=== PATIENT | female | born 1985 | race Caucasian/White ===

== ENCOUNTER 2017-09-18 09:46 | Emergency (ER) | payer OTHER ==
[~2017-09-18] VITALS: Ht 172.7 cm; Wt 68.0 kg
[~2017-09-18 09:46] MED LIST: DIAZ5TAB PO; HYDR-971 PO
[2017-09-18] MEDS ORDERED: ONDANSETRON PF 4 MG/2 ML VIAL. IV ONE (10:15)
[2017-09-18] MEDS ORDERED: IV NORMAL SALINE 1,000ML 1,000 ML IV SCH (10:20)
[2017-09-18] MEDS ORDERED: KETOROLAC 30 MG/ML VIAL. IV ONE (10:30)
[2017-09-18 10:31] LABS: BASO % 1 % (0-3); EOS # 0.1 x10^3/uL (0.0-0.7); EOS % 2 % (0-3); HEMATOCRIT 45.9 % (36.0-47.0); HEMOGLOBIN 16.2 g/dL (12.0-15.5); LYMPH # 0.5 x10^3/uL (1.0-4.8); LYMPH % 10 % (24-48); MEAN CORPUSCULAR HEMOGLOBIN 31 pg (25-35); MEAN CORPUSCULAR HGB CONC 35 g/dL (31-37); MEAN CORPUSCULAR VOLUME 89 fL (79-100); MONO # 0.4 x10^3/uL (0.0-1.1); MONO % 7 % (0-9); NEUT # 4.3 x10^3uL (1.8-7.7); NEUT % 80 % (31-73); PLATELET COUNT 281 x10^3/uL (140-400); RED BLOOD COUNT 5.18 x10^6/uL (3.50-5.40); RED CELL DISTRIBUTION WIDTH 13.1 % (11.5-14.5); WHITE BLOOD COUNT 5.3 x10^3/uL (4.0-11.0)
[2017-09-18 10:39] LABS: PREG TEST PT QUAL NEGATIVE (NEG)
[2017-09-18 10:43] LABS: ALBUMIN 4.1 g/dL (3.4-5.0); ALBUMIN/GLOBULIN RATIO 1.1 (1.0-1.7); CALCIUM 9.2 mg/dL (8.5-10.1); CREATININE 0.7 mg/dL (0.6-1.0); TOTAL BILIRUBIN 0.5 mg/dL (0.2-1.0); TOTAL PROTEIN 7.8 g/dL (6.4-8.2)
--- NOTE | 2017-09-18 11:06 | PHYS DOC ---
Past History Past Medical History: No Pertinent History Past Surgical History: No Surgical History Smoking: Non-smoker Alcohol Use: None Drug Use: None Adult General Chief Complaint Chief Complaint: ABDOMINAL PAIN HPI HPI Patient is a [31] year old [female] who presents with [complaining of abdominal pain and nausea vomiting diarrhea.] Patient complaining of constant epigastric sharp pain without radiation for the last 4 days that getting worse with eating. Patient states she had about 10 episodes of nonbloody vomiting and diarrhea for first 2 days but for last 2 days did not have any episodes of vomiting and had small amount of loose stool with feeling of unable to have a good BM. Patient complaining of passing large amount of gas and increasing sharp epigastric pain and anorexia without fever and chills, urinary symptoms, sick contacts,. Review of Systems Review of Systems Constitutional: Denies fever or chills [] Eyes: Denies change in visual acuity, redness, or eye pain [] HENT: Denies nasal congestion or sore throat [] Respiratory: Denies cough or shortness of breath [] Cardiovascular: No additional information not addressed in HPI [] GI: Report abdominal pain, nausea, vomiting, diarrhea [] : Denies dysuria or hematuria [] Musculoskeletal: Denies back pain or joint pain [] Integument: Denies rash or skin lesions [] Neurologic: Denies headache, focal weakness or sensory changes [] Endocrine: Denies polyuria or polydipsia [] All other systems were reviewed and found to be within normal limits, except as documented in this note. Current Medications Current Medications Current Medications Medications (Trade) Dose Ordered Sig/[facility] Start Time Stop Time Status Last Admin Dose Admin Fentanyl Citrate (Fentanyl 2ml Vial) 50 mcg 1X ONCE 09/18/17 11:00 09/18/17 11:01 DC 09/18/17 10:56 50 MCG Ketorolac Tromethamine (Toradol) 30 mg 1X ONCE 09/18/17 10:30 09/18/17 10:31 DC 09/18/17 10:29 30 MG Ondansetron HCl (Zofran) 4 mg 1X ONCE 09/18/17 10:15 09/18/17 10:16 DC 09/18/17 10:18 4 MG Sodium Chloride 1,000 ml @ 1,000 mls/hr Q1H 09/18/17 10:20 09/18/17 11:19 09/18/17 10:19 1,000 MLS/HR Allergies Allergies Allergies Coded Allergies Type Severity Reaction Last Updated Verified No Known Drug Allergies 10/23/16 No Physical Exam Physical Exam Constitutional: Well developed, well nourished, moderate distress, non-toxic appearance, anxious and tearful. [] HENT: Normocephalic, atraumatic, bilateral external ears normal, oropharynx moist, no oral exudates, nose normal. [] Eyes: PERRLA, EOMI, conjunctiva normal, no discharge. [] Neck: Normal range of motion, no tenderness, supple, no stridor. [] Cardiovascular:Heart rate regular rhythm, no murmur [] Lungs & Thorax: Bilateral breath sounds clear to auscultation [] Abdomen: Bowel sounds normal, soft, no tenderness, no masses, no pulsatile masses. [] Skin: Warm, dry, no erythema, no rash. [] Back: No tenderness, no CVA tenderness. [] Extremities: No tenderness, no cyanosis, no clubbing, ROM intact, no edema. [] Neurologic: Alert and oriented X 3, normal motor function, normal sensory function, no focal deficits noted. [] Psychologic Anxious, judgement normal. Current Patient Data Vital Signs Vital Signs Date Time Temp Pulse Resp B/P (MAP) Pulse Ox O2 Delivery O2 Flow Rate FiO2 09/18/17 10:56 18 100 09/18/17 09:56 97.9 102 Room Air Lab Results Laboratory Tests Test 09/18/17 10:20 White Blood Count 5.3 x10^3/uL (4.0-11.0) Red Blood Count 5.18 x10^6/uL (3.50-5.40) Hemoglobin 16.2 g/dL (12.0-15.5) H Hematocrit 45.9 % (36.0-47.0) Mean Corpuscular Volume 89 fL (79-100) Mean Corpuscular Hemoglobin 31 pg (25-35) Mean Corpuscular Hemoglobin Concent 35 g/dL (31-37) Red Cell Distribution Width 13.1 % (11.5-14.5) Platelet Count 281 x10^3/uL (140-400) Neutrophils (%) (Auto) 80 % (31-73) H Lymphocytes (%) (Auto) 10 % (24-48) L Monocytes (%) (Auto) 7 % (0-9) Eosinophils (%) (Auto) 2 % (0-3) Basophils (%) (Auto) 1 % (0-3) Neutrophils # (Auto) 4.3 x10^3uL (1.8-7.7) Lymphocytes # (Auto) 0.5 x10^3/uL (1.0-4.8) L Monocytes # (Auto) 0.4 x10^3/uL (0.0-1.1) Eosinophils # (Auto) 0.1 x10^3/uL (0.0-0.7) Basophils # (Auto) 0.0 x10^3/uL (0.0-0.2) Sodium Level 138 mmol/L (136-145) Potassium Level 4.0 mmol/L (3.5-5.1) Chloride Level 102 mmol/L (98-107) Carbon Dioxide Level 27 mmol/L (21-32) Anion Gap 9 (6-14) Blood Urea Nitrogen 7 mg/dL (7-20) Creatinine 0.7 mg/dL (0.6-1.0) Estimated GFR (Cockcroft-Gault) 97.0 BUN/Creatinine Ratio 10 (6-20) Glucose Level 105 mg/dL (70-99) H Calcium Level 9.2 mg/dL (8.5-10.1) Total Bilirubin 0.5 mg/dL (0.2-1.0) Aspartate Amino Transferase (AST) 12 U/L (15-37) L Alanine Aminotransferase (ALT) 28 U/L (14-59) Alkaline Phosphatase 58 U/L (46-116) Total Protein 7.8 g/dL (6.4-8.2) Albumin 4.1 g/dL (3.4-5.0) Albumin/Globulin Ratio 1.1 (1.0-1.7) Lipase 102 U/L (73-393) Serum Test, Qualitative Negative (NEG) EKG EKG [] Radiology/Procedures Radiology/Procedures [] Course & Med Decision Making Course & Med Decision Making Pertinent Labs and Imaging studies reviewed. (See chart for details) [Evaluation of patient in the ER showed 31-year-old female patient with complaining of epigastric pain and nausea and vomiting. Patient was tearful and in moderate distress of pain. Patient had unremarkable abdominal exam and labs and CT abdomen/pelvis. Patient treated with IV fluid, Zofran, Toradol, fentanyl and morphine and felt better and tolerated oral intake. Plan discharge patient home with diagnosis of acute viral gastroenteritis and instructions to follow up with her primary care physician and increase fluid intake. Dragon Disclaimer Dragon Disclaimer This electronic medical record was generated, in whole or in part, using a voice recognition dictation system. Departure Departure: Impression: Primary Impression: Acute gastroenteritis Additional Impression: Epigastric pain Disposition: HOME, SELF-CARE (discharged at 1246) Condition: IMPROVED Referrals: PCP,UNKNOWN (PCP) Additional Instructions: Follow-up with your primary care physician in 3-5days Return to ER if not getting better Take liquid diet for 12 hours Increase fluid intake Scripts Hydrocodone Bit/Acetaminophen (NORCO 5-325 TABLET) 1 Each Tablet 1 TAB PO PRN Q6HRS Y for PAIN for 3 Days, #12 TAB 0 Refills Prov: ENEDELIA MCKOEN MD 09/18/17 Ondansetron (ZOFRAN ODT) 4 Mg Tab.rapdis 1 TAB SL Q8HRS, #15 TAB Prov: ENEDELIA MCKEON MD 09/18/17 Problem Qualifiers ENEDELIA MCKEON MD Sep 18, 2017 11:06
[2017-09-18] MEDS ORDERED: IOHEXOL 300 MG/ML 75 ML VIAL. IV ONE (11:15)
[2017-09-18 12:15] VITALS: BP 133/65
--- NOTE | 2017-09-18 12:19 | RAD ---
EXAM: CT abdomen and pelvis with contrast. HISTORY: 31-year-old female with abdominal pain for 4 days. Epigastric pain with vomiting and diarrhea. TECHNIQUE: Computed tomographic images of the abdomen and pelvis are obtained following the intravenous demonstration of 75 cc of Omni 300. Multiplanar reformatting was performed. One or more of the following individualized dose reduction techniques were utilized for this examination: 1. Automated exposure control 2. Adjustment of the mA and/or kV according to patient size 3. Use of iterative reconstruction technique COMPARISON: None. FINDINGS: The liver, gallbladder, spleen, pancreas, adrenal glands and kidneys demonstrate no focal abnormality. No dilated small bowel loops are seen to suggest obstruction. The appendix is well-visualized in the right lower quadrant posterior to the ascending colon, measuring up to 6 mm in diameter with air in its proximal lumen. No adjacent soft tissue stranding or adenopathy is seen to suggest acute inflammation. There is intraluminal fluid present within portions of the proximal and distal colon. No focal bowel wall thickening is seen. The urinary bladder is unremarkable. Uterus and bilateral adnexa demonstrate no focal abnormality in this premenopausal patient. No free fluid, free air or significant lymphadenopathy is seen within the abdomen or pelvis. Aorta is normal in caliber. The visualized lung bases are clear. There is partial visualization of bilateral breast implants. Overlying soft tissues and visualized osseous structures demonstrate no acute finding. IMPRESSION: No acute intra-abdominal or pelvic process seen. Fluid is present within portions of the colon, consistent with provided history of diarrhea. No bowel wall thickening or evidence of obstruction present.
[2017-09-18 12:26] LABS: BACTERIA,URINE 0 /HPF (0-FEW); BILIRUBIN,URINE NEG (NEG); CLARITY,URINE CLEAR; COLOR,URINE YELLOW; GLUCOSE,URINE NEG (NEG); NITRITE,URINE NEG (NEG); RBC,URINE OCC /HPF (0-2); SQUAMOUS EPITHELIAL CELL,UR FEW /LPF; UROBILINOGEN,URINE 0.2 mg/dL (0.2 mg/dL)
[2017-09-18] MEDS ORDERED: MORPHINE SULFATE 4 MG/ML DISP.SYRIN. IV ONE (12:30)
[2017-09-18] MEDS ORDERED: ONDA4TAB10 SL (12:50)
[2017-09-18] MEDS ORDERED: HYDR-971 PO (12:50)
== END 2017-09-18 13:03 | disposition home or self-care (01) ==
LOC: ER 09:46
DX: K52.89 Other specified noninfective gastroenteritis and colitis (principal)
CPT/HCPCS: 36415; 74177; 80053; 81001; 83690; 84703; 85025; 96361; 96374; 96375; 99285; J1885; J2270; J2405; J3010; Q9967; J7030

== ENCOUNTER 2018-12-21 12:59 | Emergency (ER) | payer OTHER ==
[~2018-12-21] VITALS: Ht 172.7 cm; Wt 79.4 kg
[~2018-12-21 12:59] MED LIST changes: +HYDR-3165 PO; -HYDR-971 PO; +ONDA4TAB10 SL
[2018-12-21 13:00] VITALS: BP 146/87
--- NOTE | 2018-12-21 13:18 | PHYS DOC ---
Past History Past Medical History: No Pertinent History Past Surgical History: No Surgical History Smoking: Non-smoker Alcohol Use: None Drug Use: None Adult General Chief Complaint Chief Complaint: LACERATION/AVULSION [facility] HPI Patient is a 33 year old right-handed female who presents with complaining of laceration of left index finger. Patient states she was using a cutting board while she was at work and cut her left index finger on volar side of middle phalanx without focal neuro deficit. Patient also had superficial laceration of nail of left thumb and tip of fifth finger. She rated her pain 9 out of 10. Patient is up-to-date with her tetanus immunization. Review of Systems Review of Systems Constitutional: Denies fever or chills [] Eyes: Denies change in visual acuity, redness, or eye pain [] HENT: Denies nasal congestion or sore throat [] Respiratory: Denies cough or shortness of breath [] Cardiovascular: No additional information not addressed in HPI [] GI: Denies abdominal pain, nausea, vomiting, bloody stools or diarrhea [] : Denies dysuria or hematuria [] Musculoskeletal: Denies back pain, reports joint pain [] Integument: Denies rash or skin lesions [] Neurologic: Denies headache, focal weakness or sensory changes [] Endocrine: Denies polyuria or polydipsia [] All other systems were reviewed and found to be within normal limits, except as documented in this note. Allergies Allergies Allergies Coded Allergies Type Severity Reaction Last Updated Verified No Known Drug Allergies 12/21/18 No Physical Exam Physical Exam Constitutional: Well developed, well nourished,mild distress, non-toxic appearance. [] HENT: Normocephalic, atraumatic. Eyes: PERRLA, EOMI, conjunctiva normal, no discharge. [] Neck: Normal range of motion, no tenderness, supple, no stridor. [] Cardiovascular:Heart rate regular rhythm, no murmur [] Lungs & Thorax: Bilateral breath sounds clear to auscultation [] Extremities: Left index finger with 1.5 cm laceration in volar side of middle phalanx close to PIP joint with exposed fat tissue, no sign of tendon injury. Superficial abrasion of medial left thumb and keep up left fifth finger. Neurologic: Alert and oriented X 3, normal motor function, normal sensory function, no focal deficits noted. [] Psychologic: Affect anxious. EKG EKG [] Radiology/Procedures Radiology/Procedures [] Course & Med Decision Making Course & Med Decision Making discharge: I've spoken with the patient and/or caregivers. I've explained the patient's condition, diagnosis and treatment plan based on information available to me at this time. I've answered the patient's and/or caregivers questions and addressed any concerns. The patient and/or caregivers have a good understanding the patient's diagnosis, condition and treatment plan as can be expected at this point. Vital signs have been stabilized. The patient's condition is stable for discharge from the emergency department. The patient will pursue further outpatient evaluation with her primary care provider or other designated consulting physician as outlined in the discharge instructions. Patient and/or caregivers are agreeable to this plan of care and follow-up instructions have been explained in detail. The patient and/or caregivers have received these instructions in written format and expressed understanding of these discharge instructions. The patient and her caregivers are aware that if any significant change in condition or worsening of symptoms should prompt him to immediately return to this of the closest emergency department. If an emergent department is not readily available I would encourage him to call 911. Vinny Disclaimer Dragon Disclaimer This electronic medical record was generated, in whole or in part, using a voice recognition dictation system. Departure Departure: Impression: Primary Impression: Laceration of index finger with foreign body Disposition: HOME, SELF-CARE (at 1411) Condition: IMPROVED Referrals: PCPMITCH (PCP) Patient Instructions: Sutured Wound Care Additional Instructions: Keep wound clean and dry Follow-up with your primary care physician or emergency room in 10 days for suture removal Scripts Hydrocodone Bit/Acetaminophen (NORCO 5-325 TABLET) 1 Each Tablet 1 TAB PO PRN Q6HRS PRN for PAIN, #8 TAB 0 Refills Prov: ENEDELIA MCKEON MD 12/21/18 Laceration Repair Lac Repair Indication: Left index finger laceration Procedure: The patient was placed in the appropriate position and left index finger digital block and local anesthesia around the laceration of medial phalanx was given. Then the wound was washed extensively for foreign body that showed in x-ray. The area was then prepped.. The laceration was closed in one layer with 5 sutures of 5-0 Ethilon]. [ADDITIONAL LACS] The wound area was then dressed with nonadhesive dressing. Total repaired wound length: 1.5 cm Other Items: [OTHER ITEMS] The patient tolerated the procedure. Complications: None Problem Qualifiers Primary Impression: Laceration of index finger with foreign body Encounter type: initial encounter Damage to nail status: unspecified Laterality: left Qualified Codes: S61.221A - Laceration with foreign body of left index finger without damage to nail, initial encounter ENEDELIA MCKEON MD Dec 21, 2018 13:17
--- NOTE | 2018-12-21 13:35 | RAD ---
EXAM: Left index finger, 3 views. HISTORY: Laceration. COMPARISON: None. FINDINGS: 3 views of the left index finger are obtained. There is no fracture, dislocation or subluxation. There is a laceration along the distal radial aspect of the index finger. There are few small radiodensities underlying this location, the largest of which measures 3 mm. IMPRESSION: 1. Left index finger laceration with associated small radiodensities likely due to tiny foreign bodies. 2. No acute osseous finding. Electronically signed by: Delmi Lopez MD (12/21/2018 1:32 PM) [place] [id number]
[2018-12-21] MEDS ORDERED: HYDR-3165 PO (14:13)
[2018-12-21] MEDS ORDERED: LIDOCAINE 1% Multi-Dose 20 ML VIAL. IJ ONE (14:20)
[2019-03-01] MEDS ORDERED: ERGO500027 PO (10:40)
[2019-03-01] MEDS ORDERED: LAMO100T5 PO (10:40)
[2019-03-01] MEDS ORDERED: TRAZ-120 PO (10:40)
[2019-03-01] MEDS ORDERED: PREN1TAB58 PO (10:40)
[2019-03-01] MEDS ORDERED: CLON1TAB PO (10:40)
== END 2018-12-21 14:21 | disposition home or self-care (01) ==
LOC: ER 12:59
DX: S61.221A Laceration with foreign body of left index finger without damage to nail, initial encounter (principal); S60.312A Abrasion of left thumb, initial encounter; W27.8XXA Contact with other nonpowered hand tool, initial encounter; Y93.89 Activity, other specified; Y92.89 Other specified places as the place of occurrence of the external cause; Y99.0 Civilian activity done for income or pay
CPT/HCPCS: 12001; 12041; 73140; 99283; 99284

== ENCOUNTER → 2019-03-07 | Day surgery (SDC) | payer OTHER ==
[~2019-03-07] MED LIST changes: +ALBUTEROL SULFATE 2.5 MG/3 ML NEBU. NEB PRN; +ATROPINE 0.5 MG/5 ML DISP.SYRIN. IV PRN; +CLON1TAB PO; +DICL50TA4 PO; +ERGO500027 PO; +IV RINGERS SOLUTION,LACTATED 1,000 ML IV SCH; +LAMO100T5 PO; +LIDOCAINE 2% PF Vial for OR 5 ML VIAL. ONE; +NALOXONE 0.4 MG/ML VIAL. IV PRN; +ONDANSETRON PF 4 MG/2 ML VIAL. IV PRN; +PREN1TAB58 PO; +PROPOFOL 40 ML IV ONE; +TRAZ-120 PO; +diphenhydrAMINE 50 MG/ML VIAL IV PRN
[2019-03-07 11:30] LABS: U PREG PATIENT NEGATIVE (NEG)
--- NOTE | 2019-03-07 11:46 | PDOC1 ---
History of Present Illness Reason for Visit: History of colon polyps History of Present Illness 33 yo female who has had several colonoscopies since age 15 yo for colon polyps. Last colonoscopy 5 years ago. Positive family history of colon cancer. She does complain of abdominal bloating and crampy pain at times Chief Complaint: as above Allergies: Coded Allergies: No Known Drug Allergies (Unverified , 12/21/18) Past Medical History Cardiac: No pertinent hx Pulmonary: No pertinent hx GRAIN MERCHANDISER: Seizure GI: Other (colon polyps) Heme/Onc: No pertinent hx Hepatobiliary: No pertinent hx Psych: No pertinent hx Musculoskeletal: No pertinent hx Rheumatologic: No pertinent hx Infectious disease: No pertinent hx ENT: No pertinent hx Renal/: No pertinent hx Endocrine: No pertinent hx Dermatology: No pertinent hx Past Surgical History: Breast Biopsy, Other (colonoscopy) Family History: Cancer (colon) Past Social History Smoke: No Alcohol: none Drugs: None Lives: with Family Review of Systems Review Of Systems Fourteen system , review of systems has been reviewed. See HPI for pertinent positives and negative responses, other mariee all other systems are negative, non pertinent or non contributory Gastrointestinal: YES: Abdominal Pain Medications Current Medications Lactated Ringer's 1,000 ml @ 125 mls/hr Q8H IV ; Start 03/07/19 at 10:04; Stop 03/07/19 at 22:03 Ondansetron HCl (Zofran) 4 mg PRN Q6HRS PRN IV Nausea, 1st Choice; Start 03/07/19 at 10:15; Stop 03/08/19 at 10:14 Diphenhydramine HCl (Benadryl) 12.5 mg PRN Q2HR PRN IV ITCHING; Start 03/07/19 at 10:15; Stop 03/08/19 at 10:14 Albuterol Sulfate (Ventolin) 2.5 mg PRN 1X PRN NEB Shortness of Breath, Wheezing; Start 03/07/19 at 10:15; Stop 03/08/19 at 10:14 Atropine Sulfate (ATROPINE 0.5mg SYRINGE) 0.5 mg PRN Q2MIN PRN IV BRADYCARDIA; Start 03/07/19 at 10:15; Stop 03/08/19 at 10:14 Naloxone HCl (Narcan) 0.04 mg PRN Q2MIN PRN IV Respiratory Depression; Start 03/07/19 at 10:15; Stop 03/08/19 at 10:14 Propofol 40 ml @ As Directed STK-MED ONCE IV ; Start 03/07/19 at 10:09; Stop 03/07/19 at 10:10; Status DC Lidocaine HCl (Lidocaine Pf 2% Vial) 5 ml STK-MED ONCE .ROUTE ; Start 03/07/19 at 10:09; Stop 03/07/19 at 10:10; Status DC Active Scripts Active Reported Vitamin D2 (Ergocalciferol (Vitamin D2)) 50,000 Unit Capsule 1 Cap PO WEEKLY Vitamins ( Vits W-Ca,Fe,Fa(<1MG)) 1 Each Tablet 1 Tab PO DAILY Lamictal (Lamotrigine) 100 Mg Tablet 3 Tab PO DAILY Trazodone Hcl 50 Mg Tablet 4 Tab PO QHS Klonopin (Clonazepam) 1 Mg Tablet 1 Tab PO BID Exam General Appearance: Alert, Oriented X3, Cooperative HEENT: Atraumatic, PERRLA, EOMI Respiratory: Clear to auscultation, Normal air movement Heart: Regular rate, No murmurs Abdominal: Normal bowel sounds, Soft, No tenderness Extremities: No edema Skin: No significant lesion Neuro: Normal speech Assessment/Plan Assessment/Plan History of colon polyps, plan colonoscopy COURSE Allergies Coded Allergies Type Severity Reaction Last Updated Verified No Known Drug Allergies 12/21/18 No Laboratory Tests Test 03/07/19 11:15 Urine Test Negative (NEG) Current Medications Medications (Trade) Dose Ordered Sig/Kristen Route PRN Reason Start Time Stop Time Status Last Admin Dose Admin Lactated Ringer's 1,000 ml @ 125 mls/hr Q8H IV 03/07/19 10:04 03/07/19 22:03 Ondansetron HCl (Zofran) 4 mg PRN Q6HRS PRN IV Nausea, 1st Choice 03/07/19 10:15 03/08/19 10:14 Diphenhydramine HCl (Benadryl) 12.5 mg PRN Q2HR PRN IV ITCHING 03/07/19 10:15 03/08/19 10:14 Albuterol Sulfate (Ventolin) 2.5 mg PRN 1X PRN NEB Shortness of Breath, Wheezing 03/07/19 10:15 03/08/19 10:14 Atropine Sulfate (ATROPINE 0.5mg SYRINGE) 0.5 mg PRN Q2MIN PRN IV BRADYCARDIA 03/07/19 10:15 03/08/19 10:14 Naloxone HCl (Narcan) 0.04 mg PRN Q2MIN PRN IV Respiratory Depression 03/07/19 10:15 03/08/19 10:14 Propofol 40 ml @ As Directed STK-MED ONCE IV 03/07/19 10:09 03/07/19 10:10 DC Lidocaine HCl (Lidocaine Pf 2% Vial) 5 ml STK-MED ONCE .ROUTE 03/07/19 10:09 03/07/19 10:10 DC Orders Procedure Category Date Status Time Vital Signs, Per [facility] 03/07/19 In Process Protocol 10:04 Pulse Ox - ZORAN 03/07/19 In Process Intermittent 10:04 Iv Ringers PHA 03/07/19 In Process Solution,Lactated (Iv 10:04 Vital Signs, Per [facility] 03/07/19 In Process Protocol 10:04 Pulse Oximetry: [facility] 03/07/19 In Process Standing Order 10:04 Field Machinist [facility] 03/07/19 In Process 10:04 Elevate Head Of Bed [facility] 03/07/19 In Process 10:04 Discharge From [facility] 03/07/19 In Process Hospital 10:04 Ondansetron Pf PHA 03/07/19 In Process (Zofran) 10:15 Diphenhydramine PHA 03/07/19 In Process (Benadryl) 10:15 Albuterol Sulfate PHA 03/07/19 In Process (Ventolin) 10:15 Atropine Sulfate PHA 03/07/19 In Process (Atropine 0.5mg 10:15 Naloxone (Narcan) PHA 03/07/19 In Process 10:15 Airway Inhalation RT 03/07/19 Logged Treatment 10:04 Test,Urine LAB 03/07/19 Complete 10:04 Propofol (Diprivan) PHA 03/07/19 Complete 10:09 Lidocaine 2% Pf Vial PHA 03/07/19 Complete For Or (Lidocaine P 10:09 VAZQUEZ ADAMS MD March 07, 2019 11:45
[2019-03-07 12:42] VITALS: BP 128/68
--- NOTE | 2019-03-09 16:06 | PATHOLOGY ---
[facility] Accession Number: [id number] . 01 Material submitted: . PART A: cecum - CECUM POLYP BIOPSY PART B: colon - BIOPSY AT 35CM/IRRITATED MUCOSAL PART C: rectum - RECTUM BIOPSY . 01 Clinical history: . Screening colon/Hx polyps . 02 Diagnosis: A. Colon biopsies, cecal polyp: - Tubular adenoma. . B. Colon biopsy, "irritated mucosa at 35 cm": - No significant pathologic abnormalities. . C. Colorectal biopsies, rectum: - Hyperplastic polyp and few mucosal-associated lymphoid aggregates. (JPM:[facility] 03/09/2019) [facility]/03/09/2019 . 02 Comment: Sections of the cecal biopsy reveal a tubular adenoma showing no high-grade dysplasia or evidence of malignancy. . Sections of the colon biopsy at 35 cm reveal a segment of colonic mucosa showing focal mild congestion and few microhemorrhages within the lamina propria. There is no evidence of an acute colitis, ischemic colitis, chronic destructive colitis, lymphocytic colitis, or collagenous colitis. . Sections of the rectal biopsy reveal a hyperplastic polyp and a few mucosal-associated lymphoid aggregates. There are no adenomatous changes or evidence of malignancy. (JPM:[facility] 03/09/2019) . 02 Electronically signed: . Carlos Hill MD, Pathologist NPI- [id number] . 01 Gross description: . A. Received in formalin labeled "Margoth Vazquez, cecum polyp BX's," and additionally labeled on the requisition as "BX," are 3 segments of dale soft tissue measuring 1.0 x 0.7 x 0.4 cm in aggregate dimensions and ranging from 0.4 to 0.5 cm in maximum dimension. The specimen is submitted entirely in cassette A1. . B. Received in formalin labeled "Margoth Vazquez, BX at 35 cm/irritated mucosa," is a single segment of dale soft tissue measuring 0.6 cm in maximum dimension. The specimen is entirely submitted in cassette B1. . C. Received in formalin labeled "Margoth Vazquez, rectum BX," are 2 segments of dale soft tissue measuring 0.9 x 0.3 x 0.2 cm in aggregate dimensions and ranging from 0.4 to 0.5 cm in maximum dimension. The specimen is submitted entirely in cassette C1. ([facility]; 03/08/2019) TOB/TOB . 02 Pathologist provided ICD-10: D12.0, K62.1 . 02 CPT . 453467, 148684, 139718 Specimen Comment: A courtesy copy of this report has been sent to Specimen Comment: [phone]. Specimen Comment: Report sent to Performed at: 01 [facility] [address], [place] [id number] MD Siddharth Brady MD Phone: [phone] Performed at: 02 [facility] [address], [place] [id number] MD Carlos Hill MD Phone: [phone]
== END | disposition home or self-care (01) ==
LOC: SURG 10:54
PROVIDERS: ATTEND Surgery
DX: D12.0 Benign neoplasm of cecum (principal); K62.1 Rectal polyp; K64.0 First degree hemorrhoids; R56.9 Unspecified convulsions; Z86.010 Personal history of colon polyps; Z80.0 Family history of malignant neoplasm of digestive organs; Z79.899 Other long term (current) drug therapy
CPT/HCPCS: 45380; 81025; 88305; J2704; J7120; J2001

== ENCOUNTER 2019-03-23 00:01 | Emergency (ER) | payer OTHER ==
[~2019-03-23] VITALS: Ht 172.7 cm; Wt 86.2 kg
[2019-03-23 00:01] VITALS: BP 121/83
[~2019-03-23 00:01] MED LIST changes: -ALBUTEROL SULFATE 2.5 MG/3 ML NEBU. NEB PRN; -ATROPINE 0.5 MG/5 ML DISP.SYRIN. IV PRN; -DICL50TA4 PO; -IV RINGERS SOLUTION,LACTATED 1,000 ML IV SCH; -LIDOCAINE 2% PF Vial for OR 5 ML VIAL. ONE; -NALOXONE 0.4 MG/ML VIAL. IV PRN; -ONDANSETRON PF 4 MG/2 ML VIAL. IV PRN; -PROPOFOL 40 ML IV ONE; -diphenhydrAMINE 50 MG/ML VIAL IV PRN
--- NOTE | 2019-03-23 00:24 | PHYS DOC ---
Past History Past Medical History: No Pertinent History Past Surgical History: No Surgical History Smoking: Non-smoker Alcohol Use: Rarely Drug Use: None Adult General Chief Complaint Chief Complaint: FOOT INJURY PAIN [facility] HPI Patient is a 33-year-old female who presents with complaint of injury to her right foot earlier today. Patient states that she was working with a sump pump to pump water out of her pool when a piece of the pump fell off and landed on her foot. Patient states that since that time she has had continued pain in the foot that now radiates out to her toes. She denies any other injuries. She rates pain as moderate.[] Review of Systems Review of Systems Constitutional: Denies fever or chills [] Respiratory: Denies cough or shortness of breath [] Cardiovascular: No additional information not addressed in HPI [] Musculoskeletal: Positive right foot pain [] Integument: Denies rash or skin lesions [] Allergies Allergies Allergies Coded Allergies Type Severity Reaction Last Updated Verified No Known Drug Allergies 03/07/19 No Physical Exam Physical Exam Constitutional: Well developed, well nourished, no acute distress, non-toxic appearance. [] Cardiovascular:Heart rate regular rhythm, no murmur [] Lungs & Thorax: Bilateral breath sounds clear to auscultation [] Abdomen: Bowel sounds normal, soft, no tenderness, no masses, no pulsatile masses. [] Extremities: Examination of right foot demonstrates small amount of soft tissue swelling dorsally with ecchymosis in the mid dorsal foot. [] EKG EKG [] Radiology/Procedures Radiology/Procedures [] Impressions: X-ray of right foot demonstrates no acute bony abnormalities. Course & Med Decision Making Course & Med Decision Making Pertinent Labs and Imaging studies reviewed. (See chart for details) [] Dragon Disclaimer Dragon Disclaimer This electronic medical record was generated, in whole or in part, using a voice recognition dictation system. Departure Departure: Impression: Primary Impression: Contusion of right foot Disposition: 01 HOME, SELF-CARE Condition: STABLE Referrals: PCP,UNKNOWN (PCP) Patient Instructions: Foot Contusion Scripts Diclofenac Sodium (DICLOFENAC SODIUM) 50 Mg Tablet. 1 TAB PO BID PRN for PAIN, #20 TAB Prov: DAWNA BESS Jr. DO 03/23/19 Problem Qualifiers Primary Impression: Contusion of right foot Encounter type: initial encounter Qualified Codes: S90.31XA - Contusion of right foot, initial encounter DAWNA BESS Jr. DO Mar 23, 2019 00:24
[2019-03-23] MEDS ORDERED: DICL50TA4 PO (01:08)
--- NOTE | 2019-03-23 08:20 | RAD ---
EXAM: RIGHT FOOT 3 VIEWS. HISTORY: Right foot pain after dropping heavy object. COMPARISON: None. FINDINGS: Three views of the right foot are obtained. No fractures are identified. Alignment is normal. Joint spaces are maintained. IMPRESSION: 1. No fracture. Electronically signed by: Caty Murphy MD (03/23/2019 8:18 AM) [facility]
== END 2019-03-23 01:30 | disposition home or self-care (01) ==
LOC: ER 00:01
DX: S90.31XA Contusion of right foot, initial encounter (principal); W20.8XXA Other cause of strike by thrown, projected or falling object, initial encounter; Y93.89 Activity, other specified; Y92.89 Other specified places as the place of occurrence of the external cause; Y99.8 Other external cause status
CPT/HCPCS: 73630; 99284

== ENCOUNTER 2019-09-30 11:24 | Emergency (ER) | payer OTHER ==
[~2019-09-30] VITALS: Ht 172.7 cm; Wt 86.2 kg
[~2019-09-30 11:24] MED LIST changes: +DICL50TA4 PO
[2019-09-30 11:51] VITALS: BP 161/120
[2019-09-30] MEDS ORDERED: clonazePAM 1 MG TABLET PO STA (12:16)
--- NOTE | 2019-09-30 12:25 | PHYS DOC ---
Past History Past Medical History: Anxiety, Other Additional Past Medical Histor: "MTHFR" Past Surgical History: No Surgical History Smoking: Non-smoker Alcohol Use: None Drug Use: None Adult General Chief Complaint Chief Complaint: RAPID HEART RATE HPI HPI Patient is a 33-year-old female presents with dizziness and lightheadedness, some worse with standing up. She notes that her heart rate has been fast. She also had some nausea and vomiting this morning. She attributes this to a change in her medicines. She is on clonazepam normally for anxiety. Her new primary care physician switched her to Ativan 2 days ago. No improvement in symptoms with the Ativan. Symptoms are moderate in intensity[] Review of Systems Review of Systems Constitutional: Denies fever or chills [] Eyes: Denies change in visual acuity, redness, or eye pain [] HENT: Denies nasal congestion or sore throat [] Respiratory: Denies cough or shortness of breath [] Cardiovascular: No chest pain[] GI: Denies abdominal pain, nausea, vomiting, bloody stools or diarrhea [] : Denies dysuria or hematuria [] Musculoskeletal: Denies back pain or joint pain [] Integument: Denies rash or skin lesions [] Neurologic: Denies headache, focal weakness or sensory changes [] Endocrine: Denies polyuria or polydipsia [] All other systems were reviewed and found to be within normal limits, except as documented in this note. Allergies Allergies Allergies Coded Allergies Type Severity Reaction Last Updated Verified No Known Drug Allergies 03/07/19 No Physical Exam Physical Exam Constitutional: Well developed, well nourished, no acute distress, non-toxic appearance. [] HENT: Normocephalic, atraumatic, bilateral external ears normal, oropharynx moist, no oral exudates, nose normal. [] Eyes: PERRLA, EOMI, conjunctiva normal, no discharge. [] Neck: Normal range of motion, no tenderness, supple, no stridor. [] Cardiovascular:Heart rate regular rhythm, no murmur, heart rate was in the 90s at time of exam [] Lungs & Thorax: Bilateral breath sounds clear to auscultation [] Abdomen: Bowel sounds normal, soft, no tenderness, no masses, no pulsatile masses. [] Skin: Warm, dry, no erythema, no rash. [] Back: No tenderness, no CVA tenderness. [] Extremities: No tenderness, no cyanosis, no clubbing, ROM intact, no edema. [] Neurologic: Alert and oriented X 3, normal motor function, normal sensory fu nction, no focal deficits noted. [] Psychologic: Affect tearful, judgement normal, mood anxious, no suicidal or homicidal ideation. No hallucinations [] Current Patient Data Vital Signs Vital Signs Date Time Temp Pulse Resp B/P (MAP) Pulse Ox O2 Delivery O2 Flow Rate FiO2 09/30/19 11:51 130 28 99 Room Air EKG EKG EKG shows a sinus tachycardia at 116 bpm, normal axis, QTC 445 ms, no ST elevations. Interpreted by me at 1145[] Radiology/Procedures Radiology/Procedures [] Course & Med Decision Making Course & Med Decision Making Pertinent Labs and Imaging studies reviewed. (See chart for details) Emergency department course: Patient arrived, was placed in bed, and tolerated exam well. Heart rate improved with IV fluids as well as clonazepam in accordance with her previous dosing. Findings and plan were discussed with the patient. She related that she is on Adderall after relating the findings of being positive for methamphetamine in her drug screen. She was oral intake yasmany erant. She was discharged in improved condition with all questions answered. Medical decision making: Patient with tachycardia and an anxiety disorder. Will prescribe a short course of clonazepam for her. She was advised not to use any drugs or medicines that are not prescribed for her. There is no evidence of a significant electrolyte abnormality. No evidence of oral intake intolerance. No evidence of this being a primary cardiac condition.[] Dragon Disclaimer Dragon Disclaimer This electronic medical record was generated, in whole or in part, using a voice recognition dictation system. Departure Departure: Impression: Primary Impression: Anxiety Additional Impressions: Tachycardia Nausea and vomiting Dizziness Disposition: HOME, SELF-CARE Condition: IMPROVED Referrals: PCP,NO (PCP) Patient Instructions: Anxiety and Panic Attacks, Nausea and Vomiting, Nonspecific Tachycardia Additional Instructions: Drink plenty of fluids, frequent small sips. No fatty foods, no milk, and no pepper for the next 48 hours. For the next 48 hours eat a diet rich in carbohydrates with foods such as bananas, rice, applesauce, and toast. Follow-up with your regular doctor in 2 days. If you do not have regular doctor list of local clinics will be provided for you. Do not use any drugs or medicines that are not prescribed for you. They may kill you! Return to the ER if unable to tolerate liquids, or any other concerns. Scripts Clonazepam (KLONOPIN) 1 Mg Tablet 1 TAB PO BID for ANXIETY, #20 TAB 0 Refills 1 tablet in the evening, one half tablet in the morning Prov: YORDY RUBI DO 09/30/19 Metoclopramide Hcl (REGLAN) 10 Mg Tablet 10 MG PO QID for nausea and vomiting, #30 TAB Prov: YORDY RUBI DO 09/30/19 Meloxicam (MELOXICAM) 7.5 Mg Tablet 7.5 MG PO DAILY for PAIN, #20 TAB Prov: YORDY RUBI DO 09/30/19 Problem Qualifiers Additional Impressions: Nausea and vomiting Vomiting type: unspecified Vomiting Intractability: non-intractable Qualified Codes: R11.2 - Nausea with vomiting, unspecified YORDY RUBI DO Sep 30, 2019 12:25
[2019-09-30 12:30] LABS: BASO # 0.1 x10^3/uL (0.0-0.2); BASO % 1 % (0-3); EOS # 0.1 x10^3/uL (0.0-0.7); EOS % 2 % (0-3); HEMATOCRIT 51.3 % (36.0-47.0); HEMOGLOBIN 17.5 g/dL (12.0-15.5); LYMPH # 0.8 x10^3/uL (1.0-4.8); LYMPH % 16 % (24-48); MEAN CORPUSCULAR HEMOGLOBIN 31 pg (25-35); MEAN CORPUSCULAR HGB CONC 34 g/dL (31-37); MEAN CORPUSCULAR VOLUME 89 fL (79-100); MONO # 0.8 x10^3/uL (0.0-1.1); MONO % 15 % (0-9); NEUT # 3.5 x10^3uL (1.8-7.7); NEUT % 66 % (31-73); PLATELET COUNT 329 x10^3/uL (140-400); RED BLOOD COUNT 5.74 x10^6/uL (3.50-5.40); RED CELL DISTRIBUTION WIDTH 12.9 % (11.5-14.5); WHITE BLOOD COUNT 5.3 x10^3/uL (4.0-11.0)
[2019-09-30] MEDS ORDERED: IV NORMAL SALINE 1,000ML 1,000 ML IV SCH (12:30)
[2019-09-30] MEDS ORDERED: ONDANSETRON PF 4 MG/2 ML VIAL. IVP ONE (12:30)
--- NOTE | 2019-09-30 12:36 | EKG ---
[address] [address] Test Date: 2019-09-30 Test Time: 11:42:32 Pat Name: CARMELINA LI Department: Room: Gender: F Saloon Keeper: : 1985 Requested By: YORDY RUBI Order Number: [id number] Reading MD: Measurements Intervals [place] Rate: 116 P: 42 GA: 140 QRS: 43 QRSD: 90 T: 84 QT: 316 QTc: 445 Interpretive Statements SINUS TACHYCARDIA R-S TRANSITION ZONE IN V LEADS DISPLACED TO THE LEFT T ABNORMALITY IN HIGH LATERAL LEADS ABNORMAL ECG RI6.01 No previous ECG available for comparison
[2019-09-30 12:38] LABS: ALBUMIN 4.3 g/dL (3.4-5.0); CALCIUM 9.3 mg/dL (8.5-10.1); CREATININE 0.9 mg/dL (0.6-1.0); GFR 71.7; POTASSIUM 3.5 mmol/L (3.5-5.1); TOTAL BILIRUBIN 0.6 mg/dL (0.2-1.0); TOTAL PROTEIN 8.8 g/dL (6.4-8.2)
[2019-09-30 13:30] LABS: BARBITURATES NEG (NEG); BENZODIAZEPINES NEG (NEG); CANNABINOIDS NEG (NEG); COCAINE NEG (NEG); METHADONE NEG (NEG); OPIATES NEG (NEG); PHENCYCLIDINE NEG (NEG)
[2019-09-30 13:32] LABS: AMPHETAMINE/METHAMPHETAMINE POS (NEG)
[2019-09-30 13:39] LABS: BACTERIA,URINE 0 /HPF (0-FEW); BILIRUBIN,URINE NEG (NEG); CLARITY,URINE CLEAR; COLOR,URINE YELLOW; GLUCOSE,URINE NEG (NEG); HYALINE CASTS, URINE FEW /HPF; NITRITE,URINE NEG (NEG); SQUAMOUS EPITHELIAL CELL,UR FEW /LPF; UROBILINOGEN,URINE 0.2 mg/dL (0.2 mg/dL)
[2019-09-30] MEDS ORDERED: IBUPROFEN 600 MG TABLET. PO ONE (14:00)
[2019-09-30] MEDS ORDERED: METO10TA81 PO (14:12)
[2019-09-30] MEDS ORDERED: MELO7.5T29 PO (14:12)
[2019-09-30] MEDS ORDERED: CLON1TAB PO (14:12)
== END 2019-09-30 14:14 | disposition home or self-care (01) ==
LOC: ER 11:24
DX: F41.9 Anxiety disorder, unspecified (principal); R00.0 Tachycardia, unspecified; R11.2 Nausea with vomiting, unspecified; R42 Dizziness and giddiness
CPT/HCPCS: 36415; 80053; 80307; 81001; 81025; 83690; 85025; 93005; 96374; 99285; J2405; J7030

== ENCOUNTER → 2019-10-26 | Outpatient (CLI) | payer OTHER ==
[2019-09-30 11:51] VITALS: BP 161/120
[~2019-10-26] MED LIST changes: +MELO7.5T29 PO; +METO10TA81 PO
--- NOTE | 2019-10-27 10:00 | RAD ---
MR#: [id number] Date of Study: 10/26/2019 Ordering Physician: MAGNOLIA JONAS, Referring Physician: MAGNOLIA JONAS, Scott: Deana Leonard RDMS RVT APPROVED REPORT Patient Location : OUT-PATIENT Indications Lower Extremity Edema : Bilateral Limited grayscale images of the bilateral saphenofemoral junctions, greater and lesser saphenous vein s do not reveal any obvious evidence of thrombus On the right side the great saphenous vein measures approximately 3.3 mm and has a maximum reflux gasper e of 2.5 seconds. On the left side the great saphenous vein measures 4.4 mm and has a maximum reflux time of 2 seconds. The bilateral lesser saphenous veins do not show any evidence of reflux. Deep System Deep Venous Thrombosis present : No Deep Venous Reflux present : No Greater Saphenous Veins (GSV) Significant venous relux noted in the RIGHT GSV at the following levels : Mid Thigh Critical Notification Critical Value: No <Conclusion> 1. Positive for reflux the bilateral greater saphenous veins. Signed by : Fede Das, Electronically Approved : 10/27/2019 10:00:16
--- NOTE | 2019-10-27 12:59 | RAD ---
MR#: [id number] Date of Study: 10/26/2019 Ordering Physician: MAGNOLIA JONAS, Referring Physician: MAGNOLIA JONAS, Scott: Deana Leonard RDMS RVT APPROVED REPORT Bilateral Lower Extremity Venous Study for DVT Patient Location: OUT-PATIENT Indications Lower Extremity Edema: Bilateral Pulmonary Embolism The bilateral lower extremity deep veins were evaluated for thrombus with color Doppler, spectral and grayscale images. On the right the grayscale images of the common femoral, superficial femoral and popliteal veins do n ot demonstrate any evidence of thrombus and these veins appear to be compressible. The below-knee vei ns were not well visualized but grossly appear to be compressible. Spectral imaging and color Doppler do not reveal any evidence of obstruction to flow with normal respirophasic variation above the knee . Below the knee there is spontaneous flow noted. On the left, the grayscale images of the common femoral, superficial femoral and popliteal veins do n ot demonstrate any evidence of thrombus and these veins appear to be compressible. The below-knee vei ns again were not well visualized but grossly appear to be compressible. Spectral imaging and color D oppler do not reveal any evidence of obstruction to flow with normal respirophasic variation above th e knee. The below-knee veins demonstrate spontaneous flow. Critical Notification Critical Value: No <Conclusion> No evidence of DVT in the BLE Signed by : Fede Das, Electronically Approved : 10/27/2019 12:59:11
== END | disposition home or self-care (01) ==
LOC: US 08:32
PROVIDERS: ATTEND Internal Medicine Cardiovascular Disease
DX: M79.89 Other specified soft tissue disorders (principal)
CPT/HCPCS: 93970

== ENCOUNTER 2019-12-19 08:36 | Emergency (ER) | payer OTHER ==
[~2019-12-19] VITALS: Ht 172.7 cm; Wt 86.2 kg
[2019-12-19] MEDS ORDERED: CYCL-331 PO (09:17)
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
[2019-12-19 09:45] VITALS: BP 122/79
== END 2019-12-19 09:45 | disposition home or self-care (01) ==
LOC: ER 08:36
DX: S46.912A Strain of unspecified muscle, fascia and tendon at shoulder and upper arm level, left arm, initial encounter (principal); S70.01XA Contusion of right hip, initial encounter; S09.90XA Unspecified injury of head, initial encounter; V89.2XXA Person injured in unspecified motor-vehicle accident, traffic, initial encounter; Y93.I9 Activity, other involving external motion; Y92.488 Other paved roadways as the place of occurrence of the external cause; Y99.8 Other external cause status
CPT/HCPCS: 99283